=== PATIENT | female | born 1950 | race Caucasian/White ===

== ENCOUNTER 2024-03-08 18:07 | Emergency (ER) | payer MEDICARE, OTHER ==
[~2024-03-08] VITALS: Ht 165.1 cm; Wt 95.0 kg
[2024-03-08 18:32] VITALS: BP 168/89
[2024-03-08 19:01] VITALS: BP 140/87
[2024-03-08] MEDS ORDERED: MONDOXYNE NL100 MG PO (19:38)
[2024-03-08] MEDS ORDERED: DOXYCYCLINE HYCLATE 100 MG/CAP PO ONE (20:00)
[2024-03-08 20:09] VITALS: BP 160/94
[2024-03-08 20:11] VITALS: BP 160/94
== END 2024-03-08 20:11 | disposition home or self-care (01) ==
LOC: ED 18:07
DX: M79.89 Other specified soft tissue disorders (principal)